=== PATIENT | male | born 1990 | race Caucasian/White ===

== ENCOUNTER 2024-11-27 10:12 | Outpatient (CLI) | payer BC, SELFPAY ==
--- NOTE | 2024-11-27 | SEMFERTCOM_PTH ---
PATIENT: Jose Iglesias LOC: [facility] U#:[id number] AGE/SX: 34/M ROOM: RE11/27/[address]: Megan Marques, : 1990 BED: DIS: 11/27/2024 SPEC #: [id number] RECD: 11/27/24 10:49 STATUS: SOUT REQ #: [id number] MANDY: 11/27/24 00:[address]: ShelliMegan DEPT: [facility] Semen RECD BY: Clemencia Grijalva MLT, ([facility]) ENTERED: 11/27/24 11:30 SP TYPE: Nathan Fert C RICHARD DR: Juan Mccarthy, Procedures: Semen Fert PAP Stain
[2024-11-27 11:34] LABS: Semen Viscosity Not Increased (Not Increa.)
[2024-11-27 11:35] LABS: Liquefaction Semen Complete in 30 min. (<30 minutes); Semen Color Opaque (Grey-opaque); Semen Immotility 20 %; Semen Morphology Result to Follow; Semen Non-Progressive Motility 20 %; Semen Progressive Motility 60 % (>32); Semen Total Motility 80 (>40% (PM+NP)); Sperm Count 50.2 Mil/mL (60-150 million/mL); pH Semen 8.5 (7.2-8.0)
[2024-11-30 22:58] LABS: Fructose, Semen 149 mg/dL (150-600)
== END 2024-11-27 10:13 | disposition home or self-care (01) ==
LOC: CHSLAB 10:20
PROVIDERS: PCP Internal Medicine; Visit Provider Obstetrics & Gynecology
DX: Z31.41 Encounter for fertility testing (principal)
CPT/HCPCS: 82757; 88160; 89320